=== PATIENT | male | born 1955 | race American Indian/Alaskan Native ===

== ENCOUNTER → 2021-02-15 | Outpatient (CLI) | payer MEDICAID ==
[2021-02-15 10:15] LABS: African American GFR (CKD) >90 (>60 ml/min/1.73 sqM); Blood Urea Nitrogen 25 mg/dL (9-20); Non-African American GFR(CKD) >90 (>60 ml/min/1.73 sqM)
--- NOTE | 2021-02-15 17:41 | CT ---
EXAMINATION TYPE: CT soft tissue neck w con DATE OF EXAM: 02/15/2021 COMPARISON: None HISTORY: Tongue Cancer CT DLP: 419.90 mGycm CONTRAST: Patient injected with 100 ml mL of Isovue 300. TECHNIQUE: Axial images at 3 mm thick sections. Reconstructed images in the coronal plane and sagitt al plane are reviewed. FINDINGS: Limited CT sections are obtained the lung apices. The lung apices appear clear. CT neck: The torus tubarius and fossa of Rosenmuller are normal. [employer] [place] spaces are normal. Para nasal sinuses and mastoid air cells are clear. Parotid glands appear normal and symmetrical. Submandibular glands, are normal. Parapharyngeal spac es are normal. No suspicious adenopathy is evident. There are several small lymph nodes present on t he left neck. Small left submandibular lymph node is present. There is some subtle asymmetry of the i nferior anterior left hypopharynx. Consider direct visualization. Epiglottis appears normal. The hypopharynx appears within normal limits. There appears to be some atrophy of the right geniohyoi d muscle. Vocal cord level appears closed at the time of imaging. Subglottic airway appears normal. Thyroid as visualized is normal. Osseous structures are normal. Spondylosis within the cervical spine. The prevertebral space is jacqueline l. There is straightening of the cervical spine in the sagittal plane which could related to patient positioning. IMPRESSIONS: 1. No definite mass correlate with patient's known tongue cancer. 2. There is some subtle asymmetry of the inferior anterior left hypopharynx. Consider direct visualiz ation above the false vocal cords 3. Atrophy right geniohyoid muscle.
== END | disposition home or self-care (01) ==
LOC: RADCTMAIN 09:29
PROVIDERS: ATTEND Internal Medicine Hematology & Oncology
DX: C02.9 Malignant neoplasm of tongue, unspecified (principal); M62.89 Other specified disorders of muscle
CPT/HCPCS: 82565; 84520; 70491; 36415; Q9967